=== PATIENT | male | born 1960 | race Caucasian/White ===

== ENCOUNTER → 2022-11-22 | Outpatient (CLI) | payer OTHER ==
[~2022-11-22] MED LIST: IOPAMIDOL 370 MG/ML 100 ML INFUS..BTL INJ ONE; SODIUM CHLORIDE 0.9% 500ML 500 ML ONE
[2022-11-22 17:38] LABS: CREATININE, SERUM 1.59 mg/dL (0.72-1.25)
== END ==
LOC: CT 16:44
PROVIDERS: ATTEND Internal Medicine Medical Oncology
DX: C65.2 Malignant neoplasm of left renal pelvis (principal)
CPT/HCPCS: 36415; 71260; 74177; 82565; 84520; 96360; J7040; Q9967